=== PATIENT | male | born 1945 | race Caucasian/White ===

== ENCOUNTER → 2021-06-10 | Outpatient (CLI) | payer SELFPAY ==
--- NOTE | 2021-06-10 | PROSBIL_PTH ---
PATIENT: SCARLET ANDRE LOC: [facility] U#:[id number] AGE/SX: 76/M ROOM: RE06/10/[address]: Dr. Elliot Fitzgerald MD : 1945 BED: DIS: 06/10/2021 SPEC #: [id number] RECD: 06/10/21 16:22 STATUS: TROY VARUN #: [id number] AZALIA: 06/10/21 00:[address]: Elliot Fitzgerald DEPT: SURGICAL PATHOLOGY RECD BY: Arnold Ashraf ENTERED: 06/11/21 09:14 SP TYPE: PROST BX CHRIS DR: Dr. Eris Cullen DO Tissues: A - PROSTATE RIGHT B - PROSTATE RIGHT C - PROSTATE RIGHT D - PROSTATE LEFT E - PROSTATE LEFT F - PROSTATE LEFT Procedures: PROSTATE BX HEADER OPERATION: Prostate biopsy PRE-OP DIAGNOSIS: R97.20 TISSUE SUBMITTED: A - Right apex, B - Right mid, C - Right base, D - Left apex, E - Left mid, F - Left base MICROSCOPIC DIAGNOSIS A. Right prostate, apex, core biopsy: Prostatic tissue, negative for malignancy. B. Right prostate, mid, core biopsy: Prostatic adenocarcinoma. [place] grade: 3+3 = 6 Number of cores involved: 1/1 Proportion of tissue involved: 5-10 % Perineural invasion: Not identified. Greatest tumor length: 0.2cm. See comment. C. 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 See comment. D. Left prostate, apex, core biopsy: Prostatic tissue, negative for malignancy. Focal mild chronic inflammation. E. Left prostate, mid, core biopsy: Prostatic tissue, negative for malignancy. Focal mild chronic inflammation. See comment. F. Left prostate, base, core biopsy: Prostatic tissue, negative for malignancy. See comment. COMMENT B, C, E & F. Immunohistochemistry ([id number]) supports the above diagnosis. Case has been reviewed in consultation with Dr. Mahmood who concurs with the above diagnosis. IDC:AM MICROSCOPIC DESCRIPTION Slides are reviewed. GROSS DESCRIPTION A - Received is one container designated prostate, right apex. The specimen consists of one elongated fragment of light hendricks-white soft tissue measuring 1 cm in length and 0.1 cm in diameter. The specimen is totally submitted in one cassette. B - Received is one container designated prostate, right mid. The specimen consists of one elongated fragment of light hendricks-white soft tissue measuring 1.5 cm in length and 0.1 cm in diameter. The specimen is totally submitted in one cassette. C - Received is one container designated prostate, right base. The specimen consists of one elongated fragment of light hendricks-white soft tissue measuring 1.5 cm in length and 0.1 cm in diameter. The specimen is totally submitted in one cassette. D - Received is one container designated prostate, left apex. The specimen consists of one elongated fragment of light hendricks-white soft tissue measuring 1.5 cm in length and 0.1 cm in diameter. The specimen is totally submitted in one cassette. E - Received is one container designated prostate, left mid. The specimen consists of one elongated fragment of light hendricks-white soft tissue measuring 1.5 cm in length and 0.1 cm in diameter. The specimen is totally submitted in one cassette. F - Received is one container designated prostate, left base. The specimen consists of one elongated fragment of light hendricks-white soft tissue measuring 1.8 cm in length and 0.1 cm in diameter. The specimen is totally submitted in one cassette. / SJ:rg 06/11/2021 TC:0 CPT: 66837 x6
--- NOTE | 2021-06-11 | IMM_PTH ---
PATIENT: SCARLET ANDRE LOC: [facility] U#:[id number] AGE/SX: 76/M ROOM: RE06/10/[address]: Dr. Elliot Fitzgerald MD : 1945 BED: DIS: 06/10/2021 SPEC #: [id number] RECD: 06/12/21 12:35 STATUS: TROY REKiara #: [id number] AZALIA: 06/11/21 00:[address]: Elliot Fitzgerald DEPT: IMMUNOHISTOCHEMISTRY RECD BY: Nestor Corcoran ENTERED: 06/12/21 12:39 SP TYPE: IMMUNO OTHR DR: Dr. Eris Cullen DO Tissues: PROSTATE BIOPSY Procedures: 34BE12 (add) P40 (add) 34BE12 (initial) PHYSICIAN & INSTITUTION [place] [address] SPECIMEN INFORMATION: Tissue Source: Prostate biopsy Clinical Info: R97.20 Specimen Number: [id number] B, C, E, F CPT code: 33421, 65557 x7 METHODOLOGY: Deparaffinized sections of prefer/formalin-fixed tissue or PAP/DQ stained slides are incubated with monoclonal/polyclonal antibodies/oligonucleotide probes. Localization is made via biotin free immunoperoxidase method. Appropriate controls are performed and reacted as expected. Results on target cell population are indicated in the following table: RESULTS: ANTIBODY / CLONE RESULT Block B P40 (BC28) negative 34BE12 (34BE12) negative Block C P40 (BC28) positive 34BE12 (34BE12) positive Block E P40 (BC28) positive 34BE12 (34BE12) positive Block F P40 (BC28) positive 34BE12 (34BE12) positive These tests were developed and their performance characteristics determined by [facility]. They may not have been cleared or approved by the [place]. Food and Drug Administration. The FDA has determined that such clearance or approval is not necessary. The above immunohistochemical/dualISH markers are ordered and reviewed by the Pathologist. INTERPRETATION: B. Prostate, right mid, core biopsy: Adenocarcinoma. C. Prostate, right base, core biopsy: Focal high grade prostatic intraepithelial neoplasm (HGPIN). E. Prostate, left mid, core biopsy: Negative for malignancy. F. Prostate, left base, core biopsy: Negative for malignancy. SJ:cass 06/12/21
== END | disposition home or self-care (01) ==
LOC: LABSPEC 16:36
PROVIDERS: PCP Family Medicine; Referring Provider Urology; Visit Provider Urology
DX: R97.20 Elevated prostate specific antigen [PSA] (principal)
CPT/HCPCS: 88305; 88341; 88342; G0416